=== PATIENT | female | born 1990 | race Two or more races ===

== ENCOUNTER 2017-10-31 23:31 | Emergency (ER) | payer SELFPAY ==
[~2017-10-31] VITALS: Ht 167.6 cm; Wt 72.6 kg
[2017-11-01] MEDS ORDERED: MORPHINE SULFATE 4 MG/ML SYR/VIAL ONE ×2 (02:10→03:08)
[2017-11-01] MEDS ORDERED: MORPHINE SULFATE 4 MG/ML SYR/VIAL IV ONE ×2 (02:15→03:08)
[2017-11-01] MEDS ORDERED: ONDANSETRON HCL 4 MG/2 ML VIAL IV ONE (02:15)
[2017-11-01] MEDS ORDERED: ETOMIDATE (2MG/ML) 20ML VIAL IV ONE (02:45)
[2017-11-01 03:49] VITALS: BP 124/78
== END 2017-11-01 04:09 | disposition home or self-care (01) ==
LOC: EDBD 23:31 → ER 23:52
DX: S82.832A Other fracture of upper and lower end of left fibula, initial encounter for closed fracture (principal); S82.852A Displaced trimalleolar fracture of left lower leg, initial encounter for closed fracture; W18.39XA Other fall on same level, initial encounter; Y93.89 Activity, other specified; Y92.89 Other specified places as the place of occurrence of the external cause; Y99.8 Other external cause status
CPT/HCPCS: 27818; 36415; 72131; 73590; 73600; 73620; 84702; 96374; 96375; 96376; 99285; J2270; J2405

== ENCOUNTER 2019-03-04 08:55 | Observation (INO) | payer OTHER ==
[~2019-03-04] VITALS: Ht 167.6 cm; Wt 88.5 kg
[2019-03-04] MEDS ORDERED: PREN-96 PO (09:39)
== END 2019-03-04 11:30 | disposition home or self-care (01) | DRG 566 ==
LOC: LDRP 08:55
PROVIDERS: ADMIT Specialist; ATTEND Specialist
DX: O48.0 Post-term pregnancy (principal); Z3A.40 40 weeks gestation of pregnancy
CPT/HCPCS: 59025; 76818; 81002; G0378

== ENCOUNTER 2019-03-06 09:43 | Observation (INO) | payer MEDICAID ==
[~2019-03-06 09:43] MED LIST: PREN-96 PO
== END 2019-03-06 10:50 | disposition home or self-care (01) | DRG 566 ==
LOC: LDRP 09:43
PROVIDERS: ADMIT Specialist; ATTEND Specialist
DX: O48.0 Post-term pregnancy (principal); Z3A.40 40 weeks gestation of pregnancy
CPT/HCPCS: 59025; 76818; 81002; G0378

== ENCOUNTER 2019-03-07 22:00 | Inpatient (IN) | payer MEDICAID | END 2019-03-09 12:35 | disposition home or self-care (01) | LOC: LDRP 22:00 | PROC: 10E0XZZ Delivery of Products of Conception, External Approach (ICD-10-PCS; principal; ~2019-03-07) | DX: O80 Encounter for full-term uncomplicated delivery (principal); Z37.0 Single live birth; Z3A.40 40 weeks gestation of pregnancy ==